=== PATIENT | male | born 1950 | race Caucasian/White ===

== ENCOUNTER 2018-10-08 10:14 | Emergency (ER) | payer OTHER ==
[~2018-10-08] VITALS: Ht 188 cm; Wt 121.4 kg
[~2018-10-08 10:14] MED LIST: ASPIR 8181 MG PO; GLUCOPHAGE1000 MG PO; GLYBURIDE 2.52.5 MG PO; GLYBURIDE 5 MG T5 M1 PO; INSULIN SYRING1 EA28 MC; KEFLEX500 M1 PO; METFORMIN HCL500 MG PO; NEEDLE1 EA11 MC; NOVOLOG100 UNIT/1 SUBQ; TRADJENTA5 MG PO
[2018-10-08 10:58] LABS: ABSOLUTE BASOPHILS 0.1 thou/uL (0.0-0.2); ABSOLUTE EOSINOPHILS 0.1 thou/uL (0.0-0.7); ABSOLUTE LYMPHOCYTES 1.6 thou/uL (0.8-5.3); ABSOLUTE MONOCYTES 0.5 thou/uL (0.0-1.2); ABSOLUTE NEUTROPHILS 3.9 thou/uL (1.6-8.1); BASOPHILS 0.9 %; EOSINOPHILS 2.2 %; HEMATOCRIT 45.5 % (42.0-52.0); HEMOGLOBIN 15.5 gm/dL (14.0-18.0); LYMPHOCYTES 26.3 %; MCH 30.5 pg (26.0-34.0); MCV 89.8 fL (80.0-100.0); MONOCYTES 8.1 %; MPV 7.8 fl. (7.2-11.1); NUCLEATED RBCS 0 /100WBC; PLATELET COUNT* 275 thou/uL (150-400); POLYS 62.5 %; RBC 5.07 mil/uL (4.50-6.00); RDW-CV 13.2 % (10.5-14.5); WBC 6.2 thou/uL (4.0-11.0)
[2018-10-08 11:06] LABS: ANION GAP 5 mmol/L (7-16); BUN 23 mg/dL (7-18); CALCIUM 8.8 mg/dL (8.5-10.1); CHLORIDE 102 mmol/L (98-107); CO2 27 mmol/L (21-32); CREATININE 1.1 mg/dL (0.6-1.3); GLUCOSE 342 mg/dL (70-99); POTASSIUM 4.2 mmol/L (3.5-5.1); SODIUM 134 mmol/L (136-145)
[2018-10-08 11:13] LABS: ALBUMIN 3.5 g/dL (3.4-5.0); ALKALINE PHOSPHATASE 79 U/L (46-116); SGOT 17 U/L (15-37); SGPT 20 U/L (30-65); TOTAL BILIRUBIN 0.9 mg/dL (<0.1-1.0); TOTAL PROTEIN 7.1 g/dL (6.4-8.2); TROPONIN-I LEVEL <0.06 ng/mL (<0.06)
[2018-10-08 11:57] LABS: URINE BILIRUBIN NEGATIVE (Negative); URINE BLOOD TRACE (Negative); URINE CLARITY CLEAR; URINE COLOR YELLOW; URINE GLUCOSE-RANDOM 3+ (Negative); URINE KETONES NEGATIVE (Negative); URINE LEUKOCYTES NEGATIVE (Negative); URINE NITRITE NEGATIVE (Negative); URINE PROTEIN NEGATIVE (Negative); URINE UROBILINOGEN 0.2 E.U./dl (0.2-1.0)
[2018-10-08] MEDS ORDERED: NOVOLIN R100 UNIT/3 SUBQ (12:06)
[2018-10-08] MEDS ORDERED: GLUCOPHAGE1000 MG PO (12:06)
[2018-10-08 12:32] VITALS: BP 110/66
--- NOTE | 2018-10-08 13:33 | EKG ---
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 : 1950 Requested By: Christie Madrigal Order Number: [id number] MD: Good Sepulveda Measurements Intervals [place] Rate: 60 P: 16 [place]: 172 QRS: -16 QRSD: 105 T: 29 QT: 418 QTc: 418 Interpretive Statements Sinus rhythm Borderline left axis deviation Abnormal R-wave progression, late transition Compared to ECG 02/13/2017 11:49:16 No significant changes Electronically Signed On 10-08-2018 13:33:23 PROGRAMMER ANALYST by Good Sepulveda [email or web address] <ELECTRONICALLY SIGNED> By: Good Sepulveda MD, [facility] 10/08/18 1333 D: [id number] 12 Good Sepulveda MD, FACC /EPI
== END 2018-10-08 12:32 | disposition home or self-care (01) ==
LOC: M.ERS 10:14
PROVIDERS: Nurse Practitioner Family
DX: E11.65 Type 2 diabetes mellitus with hyperglycemia (principal); F32.9 Major depressive disorder, single episode, unspecified; N40.0 Benign prostatic hyperplasia without lower urinary tract symptoms; Z90.89 Acquired absence of other organs

== ENCOUNTER 2019-06-11 07:05 | Emergency (ER) | payer OTHER ==
[~2019-06-11] VITALS: Ht 190.5 cm; Wt 122.9 kg
[~2019-06-11 07:05] MED LIST changes: +NOVOLIN R100 UNIT/3 SUBQ
[2019-06-11 07:59] LABS: ABSOLUTE BASOPHILS 0.1 thou/uL (0.0-0.2); ABSOLUTE EOSINOPHILS 0.1 thou/uL (0.0-0.7); ABSOLUTE LYMPHOCYTES 1.6 thou/uL (0.8-5.3); ABSOLUTE MONOCYTES 0.5 thou/uL (0.0-1.2); ABSOLUTE NEUTROPHILS 3.8 thou/uL (1.6-8.1); EOSINOPHILS 1.9 %; HEMATOCRIT 47.1 % (42.0-52.0); HEMOGLOBIN 16.2 gm/dL (14.0-18.0); LYMPHOCYTES 26.2 %; MCH 30.9 pg (26.0-34.0); MCHC 34.3 g/dL (28.0-37.0); MONOCYTES 7.9 %; MPV 7.9 fl. (7.2-11.1); NUCLEATED RBCS 0 /100WBC; PLATELET COUNT* 223 thou/uL (150-400); RBC 5.23 mil/uL (4.50-6.00); RDW-CV 13.5 % (10.5-14.5); WBC 6.1 thou/uL (4.0-11.0)
[2019-06-11 08:07] LABS: ANION GAP 11 mmol/L (7-16); BUN 21 mg/dL (7-18); CHLORIDE 104 mmol/L (98-107); CO2 23 mmol/L (21-32); CREATININE 1.1 mg/dL (0.6-1.3); GLUCOSE 248 mg/dL (70-99); POTASSIUM 3.9 mmol/L (3.5-5.1); SODIUM 138 mmol/L (136-145)
[2019-06-11] MEDS ORDERED: ANTIVERT25 MG PO (08:13)
[2019-06-11] MEDS ORDERED: ZOFRAN ODT4 MG DISSOLVE (08:13)
[2019-06-11 08:16] LABS: ALBUMIN 3.9 g/dL (3.4-5.0); ALKALINE PHOSPHATASE 72 U/L (46-116); SGOT 14 U/L (15-37); SGPT 22 U/L (30-65); TOTAL BILIRUBIN 0.9 mg/dL (<0.1-1.0); TOTAL PROTEIN 7.3 g/dL (6.4-8.2); TROPONIN-I LEVEL <0.06 ng/mL (<0.06)
[2019-06-11 09:05] VITALS: BP 174/81
--- NOTE | 2019-06-11 14:15 | EKG ---
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
== END 2019-06-11 09:06 | disposition home or self-care (01) ==
LOC: M.ERS 07:05
PROVIDERS: Emergency Medicine Emergency Medical Services
DX: H81.10 Benign paroxysmal vertigo, unspecified ear (principal); R11.2 Nausea with vomiting, unspecified; E11.9 Type 2 diabetes mellitus without complications; F32.9 Major depressive disorder, single episode, unspecified; Z98.890 Other specified postprocedural states

== ENCOUNTER 2019-07-13 12:32 | Emergency (ER) | payer OTHER ==
[~2019-07-13] VITALS: Ht 193 cm; Wt 122.5 kg
[~2019-07-13 12:32] MED LIST changes: +ANTIVERT25 MG PO; +ZOFRAN ODT4 MG DISSOLVE
[2019-07-13 13:24] LABS: ABSOLUTE BASOPHILS 0.1 thou/uL (0.0-0.2); ABSOLUTE EOSINOPHILS 0.2 thou/uL (0.0-0.7); ABSOLUTE LYMPHOCYTES 1.8 thou/uL (0.8-5.3); ABSOLUTE MONOCYTES 0.4 thou/uL (0.0-1.2); ABSOLUTE NEUTROPHILS 3.2 thou/uL (1.6-8.1); BASOPHILS 1.1 %; EOSINOPHILS 3.1 %; HEMATOCRIT 45.7 % (42.0-52.0); LYMPHOCYTES 32.1 %; MCH 31.6 pg (26.0-34.0); MCHC 34.9 g/dL (28.0-37.0); MCV 90.6 fL (80.0-100.0); MONOCYTES 7.7 %; MPV 7.9 fl. (7.2-11.1); NUCLEATED RBCS 0 /100WBC; PLATELET COUNT* 219 thou/uL (150-400); RBC 5.05 mil/uL (4.50-6.00); RDW-CV 13.6 % (10.5-14.5); WBC 5.6 thou/uL (4.0-11.0)
[2019-07-13 13:31] LABS: CALCIUM 9.3 mg/dL (8.5-10.1); CREATININE 1.1 mg/dL (0.6-1.3); POTASSIUM 4.1 mmol/L (3.5-5.1)
[2019-07-13 13:41] LABS: ALBUMIN 3.8 g/dL (3.4-5.0); TOTAL BILIRUBIN 1.1 mg/dL (<0.1-1.0); TOTAL PROTEIN 7.3 g/dL (6.4-8.2)
[2019-07-13 14:01] LABS: URINE BILIRUBIN NEGATIVE (Negative); URINE BLOOD NEGATIVE (Negative); URINE CLARITY CLEAR; URINE COLOR YELLOW; URINE GLUCOSE-RANDOM 2+ (Negative); URINE KETONES NEGATIVE (Negative); URINE LEUKOCYTES-REFLEX NEGATIVE (Negative); URINE NITRITE-REFLEX NEGATIVE (Negative); URINE PROTEIN NEGATIVE (Negative); URINE SPECIFIC GRAVITY >= 1.030 (1.005-1.030); URINE UROBILINOGEN 0.2 E.U./dl (0.2-1.0)
[2019-07-13] MEDS ORDERED: ZOFRAN4 MG PO (14:43)
[2019-07-13 14:55] VITALS: BP 157/73
--- NOTE | 2019-07-13 15:20 | EKG ---
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 : 1950 Requested By: Neelam Villegas Order Number: [id number] MD: Good Sepulveda Measurements Intervals [place] Rate: 68 P: 50 MA: 172 QRS: 8 QRSD: 114 T: 50 QT: 408 QTc: 434 Interpretive Statements Sinus rhythm Borderline intraventricular conduction delay Borderline low voltage, extremity leads Compared to ECG 06/11/2019 07:20:19 Sinus bradycardia no longer present Electronically Signed On 07-13-2019 15:19:59 CDT by Good Sepulveda [email or web address] <ELECTRONICALLY SIGNED> By: Good Sepulveda MD, [facility] 07/13/19 1519 1345 1345 Good Sepulveda MD, FACC /EPI
== END 2019-07-13 14:56 | disposition home or self-care (01) ==
LOC: M.ERS 12:32
PROVIDERS: Emergency Medicine
DX: K52.9 Noninfective gastroenteritis and colitis, unspecified (principal); E11.9 Type 2 diabetes mellitus without complications; F32.9 Major depressive disorder, single episode, unspecified; Z90.49 Acquired absence of other specified parts of digestive tract

== ENCOUNTER 2019-10-15 17:40 | Inpatient (IN) | payer OTHER ==
[~2019-10-15] VITALS: Ht 190.5 cm; Wt 122.5 kg
[~2019-10-15 17:40] MED LIST changes: +ZOFRAN4 MG PO
[2019-10-15 17:59] VITALS: BP 174/82
[2019-10-15 19:14] LABS: ABSOLUTE BASOPHILS 0.1 thou/uL (0.0-0.2); ABSOLUTE EOSINOPHILS 0.3 thou/uL (0.0-0.7); ABSOLUTE MONOCYTES 0.6 thou/uL (0.0-1.2); ABSOLUTE NEUTROPHILS 4.7 thou/uL (1.6-8.1); BASOPHILS 1.2 %; EOSINOPHILS 3.7 %; HEMATOCRIT 42.2 % (42.0-52.0); HEMOGLOBIN 14.8 gm/dL (14.0-18.0); LYMPHOCYTES 25.8 %; MCH 31.2 pg (26.0-34.0); MCV 89.2 fL (80.0-100.0); MONOCYTES 7.8 %; MPV 7.7 fl. (7.2-11.1); NUCLEATED RBCS 0 /100WBC; PLATELET COUNT* 275 thou/uL (150-400); POLYS 61.5 %; RBC 4.74 mil/uL (4.50-6.00); RDW-CV 13.1 % (10.5-14.5); WBC 7.6 thou/uL (4.0-11.0)
[2019-10-15 19:19] LABS: CALCIUM 8.7 mg/dL (8.5-10.1); POTASSIUM 4.4 mmol/L (3.5-5.1)
[2019-10-15 19:24] LABS: ALBUMIN 3.4 g/dL (3.4-5.0); TOTAL BILIRUBIN 0.5 mg/dL (<0.1-1.0); TOTAL PROTEIN 6.9 g/dL (6.4-8.2)
[2019-10-15 20:44] VITALS: BP 114/70
[2019-10-15 21:20] VITALS: BP 158/57
[2019-10-16 07:50] VITALS: BP 112/52
[2019-10-16 15:55] VITALS: BP 117/63
[2019-10-16 20:00] VITALS: BP 118/65
[2019-10-17 02:07] LABS: GLYCOHEMOGLOBIN (HGB A1C) 10.9 % (4.8-5.6)
[2019-10-17 05:38] LABS: HEMATOCRIT 40.5 % (42.0-52.0); HEMOGLOBIN 14.1 gm/dL (14.0-18.0); MCH 30.7 pg (26.0-34.0); MCHC 34.7 g/dL (28.0-37.0); MCV 88.3 fL (80.0-100.0); MPV 7.8 fl. (7.2-11.1); RBC 4.58 mil/uL (4.50-6.00); RDW-CV 12.9 % (10.5-14.5)
[2019-10-17 05:59] LABS: ALBUMIN 2.8 g/dL (3.4-5.0); CALCIUM 8.1 mg/dL (8.5-10.1); CREATININE 0.9 mg/dL (0.6-1.3); MAGNESIUM 1.9 mg/dL (1.8-2.4); TOTAL BILIRUBIN 0.5 mg/dL (<0.1-1.0); TOTAL PROTEIN 6.1 g/dL (6.4-8.2)
[2019-10-17 07:45] VITALS: BP 145/71
[2019-10-17 18:38] VITALS: BP 122/61
[2019-10-17 20:00] VITALS: BP 130/68
[2019-10-18 07:02] VITALS: BP 136/62
[2019-10-18 16:00] VITALS: BP 122/59
[2019-10-18 20:00] VITALS: BP 128/54
[2019-10-19 05:18] LABS: HEMATOCRIT 41.9 % (42.0-52.0); HEMOGLOBIN 14.6 gm/dL (14.0-18.0); MCH 31.3 pg (26.0-34.0); MCHC 34.9 g/dL (28.0-37.0); MCV 89.6 fL (80.0-100.0); MPV 7.8 fl. (7.2-11.1); RBC 4.68 mil/uL (4.50-6.00); RDW-CV 13.2 % (10.5-14.5); WBC 6.7 thou/uL (4.0-11.0)
[2019-10-19 05:58] LABS: CALCIUM 8.4 mg/dL (8.5-10.1); CREATININE 1.1 mg/dL (0.6-1.3); MAGNESIUM 1.9 mg/dL (1.8-2.4); POTASSIUM 4.1 mmol/L (3.5-5.1); TOTAL BILIRUBIN 0.5 mg/dL (<0.1-1.0); TOTAL PROTEIN 6.3 g/dL (6.4-8.2)
[2019-10-19 07:29] VITALS: BP 131/79
[2019-10-19] MEDS ORDERED: TRANSDERM-SCOP1 EACH TRANSDERM (11:13)
[2019-10-19] MEDS ORDERED: AUGMENTIN 875-1 EACH PO (11:13)
[2019-10-19] MEDS ORDERED: TRAMADOL 50 MG50 MG PO (11:13)
[2019-10-19 12:32] VITALS: BP 128/65
[2019-10-19 12:57] VITALS: BP 128/65
[2019-10-19 13:04] VITALS: BP 128/65
[2019-10-19 15:47] VITALS: BP 128/65
--- NOTE | 2019-10-19 17:54 | CON ---
[address] [address] CONSULTATION Name: NEELAM CALLAHAN Room: [address] IN .R.#: [id number] Admission: 10/15/19 Attend Phys: Erika Riley MD Discharge: 10/19/19 Date of : 50 Report #: [id number] THIS REPORT FOR: //name// cc: Opal Garcia Sarah Anne FNP ~ THIS REPORT FOR: //name// CC: Erika Garcia DATE OF SERVICE: 10/18/2019 CONSULTATION: Infectious diseases. HISTORY OF PRESENT ILLNESS: Mr Callahan is a 69-year-old white male who comes to the hospital 10/15 complaining of pain in his left foot. The patient has diabetes, but really has not had trouble with diabetic foot wounds. He thinks this wound began on Friday or Friday when he had to let the dog out and he was only wearing stockings. There is rock salt on his driveway and he thinks he may have suffered an injury walking on the rock salt. The patient developed a wound under the third metatarsal head. He developed increased pain in the foot with redness, warmth and swelling. 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 Infectious Disease consultation was requested. The patient did have chills and erythema. The pain in his foot went all the way to his calf. He did not notice higher blood sugars. He did not measure any fever. PAST MEDICAL HISTORY: The patient's past history includes diabetes, depression, and prostatic hypertrophy. FAMILY HISTORY: Noncontributory. SOCIAL HISTORY: The patient is . He lives with his . He does not smoke cigarettes. He is retired. REVIEW OF SYSTEMS: GENERAL: No measured fevers, but chills. ENT: No headache, sinus congestion, sore throat, trouble swallowing. CHEST: No cough, chest pain, shortness of breath. No angina, syncope nor palpitations. GASTROINTESTINAL: No nausea, vomiting, diarrhea, constipation. GENITOURINARY: No complaints. EXTREMITIES: Pain in his left foot, which is markedly improved since being in the hospital on antibiotics for 2-1/2 days. PHYSICAL EXAMINATION: NEUROLOGIC: The patient appears comfortable, not in any distress. VITAL SIGNS: Normal. The patient is afebrile. SKIN: Shows no rash nor lesions. The foot is as described below. ENT: Negative. HEART: Unremarkable. LUNGS: Unremarkable. ABDOMEN: Unremarkable. EXTREMITIES: Show diminished pulses. There are not neuropathic changes of the musculoskeletal appearance of the foot. There is some numbness on the plantar surface. The left foot has a clean punched out lesion about 1.2 x 1.7 x 0.2 cm. There are no cellulitic changes around the wound. There are no cellulitic changes of left foot or calf. This is apparently an improvement from his presentation. The foot is not tender. Both feet demonstrate dry dyshidrotic skin, but there are no other wounds. LABORATORY DATA: White count is 7.0, hemoglobin 14, hematocrit 40%. Electrolytes, BUN and creatinine are normal. Glucose was initially 273, is now down to 154. Prealbumin is normal at 18. Hemoglobin A1c is very high at 10.9. Vanco trough level is 11. Radiographs and MRI of the foot do not demonstrate any bony changes. IMPRESSION: Diabetic foot wound with cellulitis, no deep infection or osteomyelitis. This is a fairly new onset superficial infection. These are usually staph or strep. I think it would be reasonable to change the vancomycin, Rocephin and clindamycin to Unasyn with plans of discharging on Augmentin. I ordered a TSH and a zinc to make sure there is no metabolic impediments to wound healing. I discussed with the patient that he needs better glycemic control as a hemoglobin A1c of 10.9 represents an average blood sugar of 275. He says his fingersticks are between 150 and 215. He needs to have appropriate footwear to offload the wound until it heals. We are currently using Aquacel on the wound, which is appropriate. The patient needs to develop foot hygiene habits including taking off his shoes and socks twice a day to examine his feet and then changing footwear. He should use a hydrating moisturizing cream for the dyshidrosis at that time as well. He needs to be very cognizant about possible ulcers in the setting of neuropathy. The patient seems motivated to consider this kind of program. For now, I will continue the patient on Unasyn. We may have adequate glycemic control and proper footwear. The patient could be discharged on oral Augmentin and wound care. Hopefully, this can happen in the next 24-48 hours. <ELECTRONICALLY SIGNED> By: [place] Tsai MD 10/19/19 1754 [id number] [id number] Tsai MD /rodo
== END 2019-10-19 15:40 | disposition home health service (06) | DRG 638 ==
LOC: M.ERS 17:40 → M.3W 19:44 → M.TBA-ER 19:44 → M.3W 21:31
PROVIDERS: Nurse Practitioner Family; ADMIT Internal Medicine
DX: E11.621 Type 2 diabetes mellitus with foot ulcer (principal); L03.116 Cellulitis of left lower limb; I10 Essential (primary) hypertension; N40.0 Benign prostatic hyperplasia without lower urinary tract symptoms; E11.65 Type 2 diabetes mellitus with hyperglycemia; L97.529 Non-pressure chronic ulcer of other part of left foot with unspecified severity; E11.40 Type 2 diabetes mellitus with diabetic neuropathy, unspecified; F32.9 Major depressive disorder, single episode, unspecified; Z79.4 Long term (current) use of insulin; Z79.84 Long term (current) use of oral hypoglycemic drugs; Z83.3 Family history of diabetes mellitus